=== PATIENT | female | born 1995 | race Caucasian/White ===

== ENCOUNTER 2021-03-11 23:15 | Emergency (ER) | payer MEDICAID, SELFPAY ==
[2021-03-11 23:16] VITALS: BP 141/113; PULSE 113; RESP 20; TEMP 37; O2SAT 99; BMI 26.9
--- NOTE | 2021-03-11 23:38 | EX.ED.VIS.PS ---
HPI HPI - Psych History of Present Illness Chief Complaint: Suicidal Informant: patient Onset/Context/Timing Onset: Today Context: Gradual Onset Timing: Continuous Worsened by: Situational factors Relieved by: Nothing Associated Symptoms Associated Symptoms - Psych: Positive for Depressed and Suicidal Thoughts; Negative for Visual Hallucinations and Auditory Hallucinations Specific plan (suicidal thought): Cutting self, burning self, hanging self Narrative Narrative: Patient presents with suicidal ideations that began today. Patient states that he has multiple stressors. Patient states that tonight he started burning himself on his left arm. Patient states he also had thoughts of cutting himself and hanging himself. Patient states he has tried to hang himself in the past. Patient denies any visual or auditory hallucinations. Prior similar symptoms: Yes PFSH PFSH Medical History (Updated 03/12/21 @ 02:[address] Bertin Rowe DO) Anxiety Depression Home Medications testosterone mg IM QWEEK 03/11/21 [History Last Taken Unknown] Allergy/AdvReac Type Severity Reaction Status Date / Time diphenhydramine AdvReac Itching Verified 03/11/21 23:20 [From Binta] Surgical History (Updated 03/11/21 @ 23:[address] Bertin Rowe DO) Status post tendon repair Social History Smoking Status: Current every day smoker tobacco type: cigarettes ROS ROS ED Constitutional Constitutional ED: Denies chills or fever(s) Eyes Eyes: Denies blurry vision or change in vision ENT ENT ED: Denies rhinorrhea or sore throat Cardiovascular Cardiovascular: Denies chest pain or palpitations Respiratory/Chest Respiratory/Chest: Denies cough or dyspnea Gastrointestinal Gastrointestinal: Denies nausea or vomiting Genitourinary Genitourinary ED: Denies dysuria or hematuria Musculoskeletal Musculoskeletal: Denies back pain or neck pain Integumentary Denies abscess or rash Neurologic Neurologic: Denies headache(s) or weakness Psychiatric Psychiatric: Reports depression and suicidal thoughts Allergic/Immunologic Allergic/Immunologic ED: Denies mouth swelling or urticaria EXAM Physical Exam Const Vital Signs: 03/11/21 23:16 03/12/21 01:03 03/12/21 02:02 Temperature 98.6 F Temperature Source Oral Pulse Rate 113 Respiratory Rate 20 16 16 Blood Pressure 141/113 Blood Pressure Mean 122 Pulse Ox 99 Oxygen Delivery Method Room Air 03/12/21 03:10 03/12/21 04:50 Temperature Temperature Source Pulse Rate 88 Respiratory Rate 16 14 Blood Pressure 138/85 H Blood Pressure Mean 102 Pulse Ox 99 Oxygen Delivery Method Positive well nourished and well developed General Appearance ED: well developed HEENT normocephalic and atraumatic Neck supple and no JVD Resp normal respiratory effort and clear to auscultation bilaterally Cardio no murmurs Rate: regular rate Rhythm: regular rhythm GI non-tender and non-distended Auscultation: normoactive bowel sounds Palpation: soft Extremity normal to inspection General Extremety ED: Negative for edema or tenderness General Extremity: Negative for edema Neuro oriented x3, CN's II-XII intact bilaterally and no sensory deficits noted Sensorium / Orientation: alert Motor Exam: strength 5/5 throughout Psych mental status grossly normal Activity / Motor Behavior: avoids eye contact Speech: minimal and soft Mood & Affect: depressed and flat affect Thought Content: suicidality Memory / Cognition: memory grossly intact Skin Rashes: no rashes MDM MDM MDM Narrative Medical decision making narrative: CBC shows a mild leukocytosis of 13.5. Basic metabolic profile was essentially within normal limits. Serum alcohol level was normal. Urine toxin was positive for cannabinoids. Urine hCG was negative. COVID-19 rapid antigen was obtained and was negative. Case was discussed with crisis. They recommended placing the patient in a psychiatric facility. They are attempting to do this at this time. Patient was accepted to [facility]. Patient will be transferred there. Patient understood and was agreeable with the plan. All questions were answered. Lab Data Attestation: I reviewed the patient's lab results. Labs: Laboratory Results - last 24 hr 03/11/21 03/11/21 03/11/21 23:55 23:55 23:55 WBC 13.5 H RBC 5.35 Hgb 16.3 H Hct 48.3 H MCV 90.3 MCH 30.5 MCHC 33.7 RDW Std Deviation 42.5 RDW Coeff of Juan 12.9 Plt Count 345 MPV 10.2 Immature Gran % (Auto) 0.400 Neut % (Auto) 80.9 H Lymph % (Auto) 12.3 L [place] % (Auto) 5.9 Eos % (Auto) 0.1 Baso % (Auto) 0.4 Absolute Neuts (auto) 10.9 H Absolute Lymphs (auto) 1.65 Nucleated RBC % 0 Sodium 139 Potassium 3.3 L Chloride 107 Carbon Dioxide 26.0 Anion Gap 6 BUN 9 Creatinine 0.94 Estim Creat Clear Calc 83.04 Est GFR (MDRD) Af Amer 94 Est GFR (MDRD) Non-Af 78 BUN/Creatinine Ratio 9.6 L Glucose 91 Calcium 9.4 Urine Test Urine Opiates Screen Urine Methadone Screen Ur Barbiturates Screen Ur Phencyclidine Scrn Ur Amphetamines Screen U Methamphetamin-MDMA U Benzodiazepines Scrn Urine Cocaine Screen U Cannabinoids Screen Ur Drug Screen Comment Ethyl Alcohol < 3.0 03/12/21 03/12/21 01:50 01:50 WBC RBC Hgb Hct MCV MCH MCHC RDW Std Deviation RDW Coeff of Juan Plt Count MPV Immature Gran % (Auto) Neut % (Auto) Lymph % (Auto) [place] % (Auto) Eos % (Auto) Baso % (Auto) Absolute Neuts (auto) Absolute Lymphs (auto) Nucleated RBC % Sodium Potassium Chloride Carbon Dioxide Anion Gap BUN Creatinine Estim Creat Clear Calc Est GFR (MDRD) Af Amer Est GFR (MDRD) Non-Af BUN/Creatinine Ratio Glucose Calcium Urine Test Negative Urine Opiates Screen NEGATIVE Urine Methadone Screen NEGATIVE Ur Barbiturates Screen NEGATIVE Ur Phencyclidine Scrn NEGATIVE Ur Amphetamines Screen NEGATIVE U Methamphetamin-MDMA NEGATIVE U Benzodiazepines Scrn NEGATIVE Urine Cocaine Screen NEGATIVE U Cannabinoids Screen POSITIVE H Ur Drug Screen Comment Ethyl Alcohol Treatment and Re-Evaluation Vital Sign Attestation:: Vital signs were reviewed prior to transfer. They are stable. Discharge Plan Triage Chief Complaint: Suicidal ED Provider: Bertin Rowe Dx/Rx/DC Orders Clinical Impression: Depression with suicidal ideation Prescriptions: No Action testosterone 50 mg/mL Solution IM QWEEK RF: 0 Primary Care Provider: Care Physician,No Primary Referrals: Care Physician,No Primary [Primary Care Provider] - Disposition Disposition: Psychiatric Hospital or Unit Discharge Location: [facility]
[2021-03-12] VITALS (7 sets, daily range): BP systolic 138; BP diastolic 85; PULSE 88; RESP 14–16; O2SAT 99
[2021-03-12 00:17] LABS: Absolute Lymphocyte Count 1.65 X10^3/uL (0.83-4.51); Absolute Neutrophil Count 10.9 X10^3/uL (2.0-7.7); Basophil# 0.05 X10^3/uL; Basophil% 0.4 % (0-1); Eosinophil# 0.02 X10^3/uL; Eosinophils% 0.1 % (0-5); Hematocrit 48.3 % (37-47); Hemoglobin 16.3 g/dL (12.0-15.0); Lymphocyte # 1.65 X10^3/ul (0.83-4.51); Lymphocyte % 12.3 % (19-41); Mean Corp Hgb Conc 33.7 g/dL (32-36); Mean Corpuscular Hgb 30.5 pg (27.0-32.0); Mean Corpuscular Volume 90.3 fL (81-99); Mean Platelet Vol. 10.2 fl (6.2-12.0); Monocyte% 5.9 % (0-10); NRBC Flagged by Analyzer 0 % (0-5); Neutrophil # 10.88 X10^3/uL (2.7-7.7); Neutrophil % 80.9 % (47-70); Platelet Count 345 K/mm3 (150-450); RBC Distribution Width CV 12.9 % (11.6-14.6); RBC Distribution Width SD 42.5 fl (35.1-43.9); Red Blood Count 5.35 M/mm3 (4.2-5.4); White Blood Count 13.5 K/mm3 (4.4-11.0)
[2021-03-12 00:39] LABS: Alcohol, Blood (Medical)-Serum < 3.0 mg/dL
[2021-03-12 00:40] LABS: Anion Gap 6 (5-15); BUN 9 mg/dL (7-18); BUN/Creat Ratio 9.6 RATIO (10-20); Calcium,Total 9.4 mg/dL (8.5-10.1); Chloride 107 mmol/L (98-107); Creatinine, Serum 0.94 mg/dL (0.55-1.02); EST Glomerular Filtration Rate 78 mL/min (>60); Est Glom Filt Rate - Afr Amer 94 mL/min (>60); Estimated Creatinine Clearance 83.04 ml/min; Glucose 91 mg/dL (74-106); Potassium 3.3 mmol/L (3.5-5.1); Sodium Level 139 mmol/L (136-145)
[2021-03-12 02:02] LABS: Internal QC Validated? YES +Cl - CLEAR BKGD; Pregnancy, Urine Negative Negative
[2021-03-12 02:14] LABS: Amphetamine Urine VISTA NEGATIVE (<1000 ng/mL); Barbiturate Urine VISTA NEGATIVE (< 200 ng/mL); Benzodiazepine Urine VISTA NEGATIVE (< 200 ng/mL); Cocaine Urine VISTA NEGATIVE (< 300 ng/mL); Ecstacy Urine VISTA NEGATIVE (< 500 ng/mL); Methadone Urine VISTA NEGATIVE (< 300 ng/mL); PCP Urine VISTA NEGATIVE (< 25 ng/mL); THC Urine VISTA POSITIVE (< 50 ng/mL); Vista UDS pH Range 7
--- NOTE | 2021-03-12 02:51 | ED.RN ---
Called lab to ask about COVID results. Tech thought they had already resulted, he would put them into computer.
[2021-03-12] MEDS: Potassium Chloride Oral Tablet 20 MEQ 40 MEQ PO (06:46)
== END 2021-03-12 07:25 ==
PROVIDERS: Emergency Provider Emergency Medicine
DX: F32.9 Major depressive disorder, single episode, unspecified (principal); F41.9 Anxiety disorder, unspecified; R45.851 Suicidal ideations; F17.210 Nicotine dependence, cigarettes, uncomplicated; Z91.5 Personal history of self-harm
CPT/HCPCS: 80048; 80307; 81025; 82077; 85025; 87426; 99285

== ENCOUNTER 2021-04-21 11:40 | Emergency (ER) | payer MEDICAID, SELFPAY ==
[2021-04-21 11:42] VITALS: BP 122/87; PULSE 96; RESP 16; TEMP 36.4; O2SAT 97; BMI 25.7
--- NOTE | 2021-04-21 12:37 | EDS_ITS ---
HPI History of Present Illness Chief Complaint: Cold Sx Informant: patient Narrative Narrative: Transgender female. Presents with Covid symptoms and concerns. 3- day history myalgias, mild productive cough, no vomiting or diarrhea. No fevers. Mild headache. Today for loss of taste and some loss of smell. States around people just recently diagnosed with Covid. No Covid vaccination. No infections in the past. Tolerating oral fluids. Prior similar symptoms: No PFSH PFSH Medical History Anxiety Depression Home Medications testosterone mg IM QWEEK 03/11/21 [History Last Taken Unknown] Allergy/AdvReac Type Severity Reaction Status Date / Time diphenhydramine AdvReac Itching Verified 04/21/21 11:41 [From Benadryl] Surgical History Status post tendon repair Social History Smoking Status: Current every day smoker tobacco type: cigarettes ROS ROS ED Constitutional Constitutional ED: Denies chills, fever(s) or sweats Eyes Eyes: Denies change in vision ENT ENT ED: Denies dysphagia or sore throat Cardiovascular Cardiovascular: Denies chest pain, leg edema, palpitations or racing heartbeat Respiratory/Chest Respiratory/Chest: Reports cough; Denies dyspnea or dyspnea on exertion Gastrointestinal Gastrointestinal: Denies abdominal pain, diarrhea, nausea or vomiting Genitourinary Genitourinary ED: Denies dysuria, hematuria or urinary frequency Musculoskeletal Musculoskeletal: Denies back pain, extremity pain or neck pain Integumentary Denies rash or wounds Neurologic Neurologic: Reports headache(s); Denies paresthesias or weakness EXAM Physical Exam Const Vital Signs: 04/21/21 11:42 Temperature 97.5 F L Temperature Source Temporal Pulse Rate 96 Respiratory Rate 16 Blood Pressure 122/87 H Blood Pressure Mean 98 Pulse Ox 97 Oxygen Delivery Method Room Air Positive well nourished and well developed General Appearance ED: well developed and NAD HEENT Reports moist mucous membranes normocephalic and atraumatic Eyes PERRL, EOMs intact bilaterally and conjunctivae normal General Eye ED: Yes normal appearance of both eyes Neck no lymphadenopathy and supple General: Negative for tenderness Chest Wall Chest: Negative for tenderness Resp normal respiratory effort and normal air movement Effort and Inspection: symmetric chest movement; Negative for respiratory distress Cardio regular rate, regular rhythm and no murmurs Peripheral Pulses: pulses 2+ throughout GI normal to inspection, nondistended, normoactive bowel sounds and non-tender Palpation: Negative for guarding or rebound tenderness present Back/Spine no CVA tenderness and no thoracic nor lumbar tenderness Extremity normal to inspection General Extremety ED: Negative for edema or tenderness General Extremity: Negative for edema Neuro oriented x3 and no sensory deficits noted Sensorium / Orientation: awake and alert Skin no rashes or lesions noted and no wounds MDM MDM MDM Narrative Medical decision making narrative: Patient vital signs stable pulse ox 97% no respiratory distress. Presentation history concerns for Covid infection. Test was ordered discussed with patient he will be texted his results. Isolation precautions. Tylenol Motrin as needed. Patient continue oral fluids. Return precautions. Discussed picking up a pulse oximeter to monitor oxygen levels. All questions answered. Discharge Plan Triage Chief Complaint: Cold Sx ED Provider: Armen Mabry Dx/Rx/DC Orders Clinical Impression: Suspected COVID-19 virus infection Instructions: Coronavirus Disease 2019 (COVID-19): Overview Prescriptions: No Action testosterone 50 mg/mL Solution IM QWEEK RF: 0 Primary Care Provider: Care Physician,No Primary Referrals: Maya Winters [NON-STAFF] - 1 Week Care Physician,No Primary [Primary Care Provider] - Disposition Disposition: Home, Self Care
== END 2021-04-21 13:02 | disposition home or self-care (01) ==
PROVIDERS: Emergency Provider Emergency Medicine
DX: U07.1 COVID-19 (principal); F17.210 Nicotine dependence, cigarettes, uncomplicated
CPT/HCPCS: 87426; 99282

== ENCOUNTER 2021-06-29 18:48 | Emergency (ER) | payer MEDICAID, SELFPAY ==
[2021-06-29 18:49] VITALS: BP 122/68; PULSE 69; RESP 15; TEMP 36.9; O2SAT 96; BMI 25.9
[2021-06-29 19:29] LABS: Absolute Lymphocyte Count 1.59 X10^3/uL (0.83-4.51); Absolute Neutrophil Count 16.4 X10^3/uL (2.0-7.7); Basophil# 0.06 X10^3/uL; Basophil% 0.3 % (0-1); Eosinophil# 0.14 X10^3/uL; Eosinophils% 0.7 % (0-5); Hematocrit 47.7 % (37-47); Hemoglobin 16.4 g/dL (12.0-15.0); Lymphocyte # 1.59 X10^3/ul (0.83-4.51); Lymphocyte % 8.4 % (19-41); Mean Corp Hgb Conc 34.4 g/dL (32-36); Mean Corpuscular Hgb 30.6 pg (27.0-32.0); Mean Platelet Vol. 9.4 fl (6.2-12.0); Monocyte# 0.59 X10^3/uL; Monocyte% 3.1 % (0-10); NRBC Flagged by Analyzer 0 % (0-5); Neutrophil # 16.42 X10^3/uL (2.7-7.7); Neutrophil % 87.1 % (47-70); Platelet Count 311 K/mm3 (150-450); RBC Distribution Width CV 12.3 % (11.6-14.6); RBC Distribution Width SD 40.1 fl (35.1-43.9); Red Blood Count 5.36 M/mm3 (4.2-5.4); White Blood Count 18.9 K/mm3 (4.4-11.0)
[2021-06-29 19:51] LABS: Anion Gap 5 (5-15); BUN 6 mg/dL (7-18); BUN/Creat Ratio 6.8 RATIO (10-20); Calcium,Total 9.4 mg/dL (8.5-10.1); Chloride 106 mmol/L (98-107); Creatinine, Serum 0.88 mg/dL (0.55-1.02); EST Glomerular Filtration Rate 84 mL/min (>60); Est Glom Filt Rate - Afr Amer 102 mL/min (>60); Glucose 93 mg/dL (74-106); Potassium 3.8 mmol/L (3.5-5.1); Sodium Level 137 mmol/L (136-145)
[2021-06-29 19:57] LABS: Internal QC Validated? YES +Cl - CLEAR BKGD; Pregnancy, Serum, hCG Quali. NEGATIVE Negative
[2021-06-29 19:59] LABS: Amphetamine Urine VISTA NEGATIVE (<1000 ng/mL); Barbiturate Urine VISTA NEGATIVE (< 200 ng/mL); Benzodiazepine Urine VISTA NEGATIVE (< 200 ng/mL); Cocaine Urine VISTA NEGATIVE (< 300 ng/mL); Ecstacy Urine VISTA NEGATIVE (< 500 ng/mL); Methadone Urine VISTA NEGATIVE (< 300 ng/mL); PCP Urine VISTA NEGATIVE (< 25 ng/mL); THC Urine VISTA POSITIVE (< 50 ng/mL); Vista UDS pH Range 7
--- NOTE | 2021-06-29 20:34 | CM.ED ---
SOCIAL WORK Crisis notified of assessment. Gina to be in to assess. Maegan Sanchez, ROOM COOLER INSTALLER, TRACK WATCHMAN
--- NOTE | 2021-06-29 20:35 | EDS_ITS ---
HPI History of Present Illness Chief Complaint: Suicidal Informant: patient and police/electrical cad designer Narrative Narrative: Transgender female brought in by for evaluation concerns for suicidal ideation with a plan. Initial discussion with the patient history of depression, was in [facility] a month ago started on Lexapro. States medication is not working. States has been trying to get in with counselor and psychiatry locally has been unsuccessful. States just needs medication no changes. Has been self cutting since 9 years old. Occasional marijuana use. Stop drinking alcohol. We discussed any specific plans, patient denies. However per pink slip from PD, patient texted roommate stating he was going to the [place] in the back and hang himself. This was reported to police and noted that he was about to go do this prior to police arriving. We discussed with patient, he states he was just in the moment. Prior similar symptoms: Yes PFSH PFSH Medical History Anxiety Depression Home Medications testosterone mg IM QWEEK 03/11/21 [History Last Taken Unknown] Allergy/AdvReac Type Severity Reaction Status Date / Time diphenhydramine AdvReac Itching Verified 04/21/21 11:41 [From Benadryl] Surgical History Status post tendon repair Social History Smoking Status: Current every day smoker tobacco type: cigarettes ROS ROS ED Constitutional Constitutional ED: Denies chills, fever(s) or sweats Eyes Eyes: Denies change in vision ENT ENT ED: Denies dysphagia or sore throat Cardiovascular Cardiovascular: Denies chest pain, leg edema, palpitations or racing heartbeat Respiratory/Chest Respiratory/Chest: Denies cough, dyspnea or dyspnea on exertion Gastrointestinal Gastrointestinal: Denies abdominal pain, diarrhea, nausea or vomiting Genitourinary Genitourinary ED: Denies dysuria, hematuria or urinary frequency Musculoskeletal Musculoskeletal: Denies back pain, extremity pain or neck pain Integumentary Denies rash or wounds Neurologic Neurologic: Denies headache(s), paresthesias or weakness Psychiatric Psychiatric: Reports depression and suicidal ideation EXAM Physical Exam Const Vital Signs: 06/29/21 18:49 06/29/21 21:03 06/29/21 22:00 Temperature 98.5 F Temperature Source Temporal Pulse Rate 69 Respiratory Rate 15 16 16 Blood Pressure 122/68 H Blood Pressure Mean 86 Pulse Ox 96 Oxygen Delivery Method Room Air Positive well nourished and well developed General Appearance ED: well developed and NAD HEENT Reports moist mucous membranes normocephalic and atraumatic Eyes PERRL, EOMs intact bilaterally and conjunctivae normal General Eye ED: Yes normal appearance of both eyes Neck no lymphadenopathy and supple General: Negative for tenderness Chest Wall Chest: Negative for tenderness Resp normal respiratory effort and normal air movement Effort and Inspection: symmetric chest movement; Negative for respiratory distress Cardio regular rate, regular rhythm and no murmurs Peripheral Pulses: pulses 2+ throughout GI normal to inspection, nondistended, normoactive bowel sounds and non-tender Palpation: Negative for guarding or rebound tenderness present Back/Spine no CVA tenderness and no thoracic nor lumbar tenderness Extremity normal to inspection General Extremety ED: Negative for edema or tenderness General Extremity: Negative for edema Neuro oriented x3 and no sensory deficits noted Sensorium / Orientation: awake and alert Psych Psych Narrative: Flat affect, denying any current suicidal or homicidal ideations. Skin Skin Narrative: Superficial skin lacerations left upper arm, no drainage or in duration. No active bleeding. Neurovascular intact distally. MDM MDM MDM Narrative Medical decision making narrative: Patient work-up initiated from triage. Suicide precautions. Labs white count 18.9. Denies cough. Tox screen positive for THC. hCG negative. Alcohol negative. We will add a UA for further evaluation. Patient medically cleared. Will have crisis evaluation of the patient due to pink slip noting suicidal plans prior to police arrival. UA noted 25 leukocytes. She is asymptomatic. She is evaluated mobile crisis, discussion had plan of care with safety contract. They discussed with her roommate. They will follow up with the patient daily multiple times a day for the next 2 days. They are on the same page for a plan of care. She will be seen by crisis closely as an outpatient medication adjustments as needed. Currently is not suicidal. Discharged with return precautions. Lab Data Attestation: I reviewed the patient's lab results. Labs: Laboratory Results - last 24 hr 06/29/21 06/29/21 06/29/21 19:15 19:15 19:15 WBC 18.9 H RBC 5.36 Hgb 16.4 H Hct 47.7 H MCV 89.0 MCH 30.6 MCHC 34.4 RDW Std Deviation 40.1 RDW Coeff of Juan 12.3 Plt Count 311 MPV 9.4 Immature Gran % (Auto) 0.400 Neut % (Auto) 87.1 H Lymph % (Auto) 8.4 L [place] % (Auto) 3.1 Eos % (Auto) 0.7 Baso % (Auto) 0.3 Absolute Neuts (auto) 16.4 H Absolute Lymphs (auto) 1.59 Nucleated RBC % 0 Sodium 137 Potassium 3.8 Chloride 106 Carbon Dioxide 26.0 Anion Gap 5 BUN 6 L Creatinine 0.88 Estim Creat Clear Calc 88.70 Est GFR (MDRD) Af Amer 102 Est GFR (MDRD) Non-Af 84 BUN/Creatinine Ratio 6.8 L Glucose 93 Calcium 9.4 Serum , Qual Urine Color Urine Clarity Urine pH Ur Specific [place] Urine Protein Urine Glucose (UA) Urine Ketones Urine Occult Blood Urine Nitrite Urine Bilirubin Urine Urobilinogen Ur Leukocyte Esterase Urine RBC Urine WBC Ur Squamous Epith Cells Urine Bacteria Urine Mucus Urine Opiates Screen Urine Methadone Screen Ur Barbiturates Screen Ur Phencyclidine Scrn Ur Amphetamines Screen U Methamphetamin-MDMA U Benzodiazepines Scrn Urine Cocaine Screen U Cannabinoids Screen Ur Drug Screen Comment Ethyl Alcohol 4.0 06/29/21 06/29/21 06/29/21 19:20 19:30 19:30 WBC RBC Hgb Hct MCV MCH MCHC RDW Std Deviation RDW Coeff of Juan Plt Count MPV Immature Gran % (Auto) Neut % (Auto) Lymph % (Auto) [place] % (Auto) Eos % (Auto) Baso % (Auto) Absolute Neuts (auto) Absolute Lymphs (auto) Nucleated RBC % Sodium Potassium Chloride Carbon Dioxide Anion Gap BUN Creatinine Estim Creat Clear Calc Est GFR (MDRD) Af Amer Est GFR (MDRD) Non-Af BUN/Creatinine Ratio Glucose Calcium Serum , Qual NEGATIVE Urine Color Yellow Urine Clarity Sl. Cloudy Urine pH 7.0 Ur Specific [place] 1.010 Urine Protein Negative Urine Glucose (UA) Normal Urine Ketones Negative Urine Occult Blood Negative Urine Nitrite Negative Urine Bilirubin Negative Urine Urobilinogen Normal Ur Leukocyte Esterase 25 H Urine RBC 0 SEEN Urine WBC 0 SEEN Ur Squamous Epith Cells 0-5 SEEN Urine Bacteria 0 SEEN Urine Mucus 0 SEEN Urine Opiates Screen NEGATIVE Urine Methadone Screen NEGATIVE Ur Barbiturates Screen NEGATIVE Ur Phencyclidine Scrn NEGATIVE Ur Amphetamines Screen NEGATIVE U Methamphetamin-MDMA NEGATIVE U Benzodiazepines Scrn NEGATIVE Urine Cocaine Screen NEGATIVE U Cannabinoids Screen POSITIVE H Ur Drug Screen Comment Ethyl Alcohol Discharge Plan Triage Chief Complaint: Suicidal ED Provider: Armen Mabry Dx/Rx/DC Orders Clinical Impression: Depression with suicidal ideation Instructions: CONTRACT, No Harm, ED Depression Prescriptions: No Action testosterone 50 mg/mL Solution IM QWEEK RF: 0 Primary Care Provider: Care Physician,No Primary Referrals: Care Physician,No Primary [Primary Care Provider] - Activity Restrictions/Additional Instructions: Follow-up with counseling center as discussed with them. Return if any worsening symptoms. Disposition Disposition: Home, Self Care
[2021-06-29 20:45] LABS: Bacteria 0 SEEN /hpf (None Seen); Mucous, Urine 0 SEEN /hpf (<or=2+); Red Blood Cells-Urine 0 SEEN /hpf (0-5); White Blood Cells 0 SEEN /hpf (0-5)
[2021-06-29 20:46] LABS: Color, Urine Yellow (Yellow); Glucose, Dipstick Normal (Normal); Ketone-Dipstick Negative (Negative); Leukocyte Esterase-Dipstick 25 /ul (Negative); Nitrite-Dipstick Negative (Negative); Occult Blood-Urine Negative /ul (Negative); Protein-Dipstick Negative (Negative); Urine Bilirubin Dipstick Negative (Negative); Urine Clarity Sl. Cloudy (Clear); Urine Urobilinogen Normal (Normal)
[2021-06-29 20:57] LABS: Squamous Epithelial Cells - UA 0-5 SEEN /hpf (5-10)
[2021-06-29 21:03] VITALS: RESP 16
[2021-06-29 22:00] VITALS: RESP 16
== END 2021-06-29 23:22 | disposition home or self-care (01) ==
PROVIDERS: Emergency Provider Emergency Medicine
DX: F32.A Depression, unspecified (principal); R45.851 Suicidal ideations; F17.210 Nicotine dependence, cigarettes, uncomplicated
CPT/HCPCS: 36415; 80048; 80307; 81001; 82077; 84703; 85025; 87426; 99285

== ENCOUNTER 2022-04-08 12:41 | Emergency (ER) | payer MEDICAID, SELFPAY ==
[2022-04-08 12:42] VITALS: BP 135/70; PULSE 78; RESP 15; TEMP 36.9; O2SAT 98; BMI 25.2
--- NOTE | 2022-04-08 12:58 | EDS_ITS ---
HPI History of Present Illness Chief Complaint: Upper Extremity Injury Narrative Narrative: 26-year-old transgender female presenting with right hand pain. She states that she punched a wall out of anger and she may have broke her hand again. She states it does hurt. She has no numbness or tingling. No bleeding or lacerations. [facility] Medical History Anxiety Depression Home Medications testosterone 50 mg/mL intramuscular solution mg IM QWEEK 03/11/21 [History Last Taken Unknown] naproxen 500 mg tablet (Naprosyn) 500 mg PO BID PRN pain #20 tabs 04/08/22 [Rx Last Taken Unknown] Allergy/AdvReac Type Severity Reaction Status Date / Time diphenhydramine AdvReac Itching Verified 04/21/21 11:41 [From Benadryl] Surgical History Status post tendon repair Social History Smoking Status: Current every day smoker tobacco type: cigarettes ROS ROS ED Constitutional Constitutional ED: Denies chills or fever(s) Eyes Eyes: Denies change in vision ENT ENT ED: Denies rhinorrhea or sore throat Cardiovascular Cardiovascular: Denies chest pain or palpitations Respiratory/Chest Respiratory/Chest: Denies cough or dyspnea Gastrointestinal Gastrointestinal: Denies abdominal pain or constipation Genitourinary Genitourinary ED: Denies dysuria or hematuria Musculoskeletal Musculoskeletal: Reports other Details: Right hand pain ; Denies back pain or myalgias Integumentary Denies abscess Neurologic Neurologic: Denies headache(s) or paresthesias Psychiatric Psychiatric: Denies anxiety or depression EXAM Physical Exam Const Vital Signs: 04/08/22 12:42 Temperature 98.4 F Temperature Source Temporal Pulse Rate 78 Respiratory Rate 15 Blood Pressure 135/70 H Blood Pressure Mean 91 Pulse Ox 98 Oxygen Delivery Method Room Air Positive well nourished and unkempt General Appearance ED: unkempt HEENT Reports moist mucous membranes normocephalic Eyes PERRL and EOMs intact bilaterally Resp normal respiratory effort Cardio regular rate and regular rhythm Extremity Extremity Narrative: Tenderness and swelling to the right hand over the third fourth and fifth MCPs. There is bruising overlying this. Right hand neurovascular intact brisk cap refill all 5 fingers. Right wrist nontender to palpate Neuro oriented x3 Sensorium / Orientation: alert Psych mental status grossly normal Appearance: unkempt MDM MDM MDM Narrative Medical decision making narrative: Patient presenting with right hand pain. Patient is concerned of a fracture in the right hand because its been broken before. There are some bruising and swelling noted over the third fourth and fifth MCPs. X-ray of the right hand on my interpretation does not show any acute fracture or subluxation. The radiologist does agree. It does appear to be evidence of old fractures. Patient placed in [place] wrap for comfort. Patient counseled to ice and elevate as frequently as possible. Patient given a prescription for Naprosyn. Impression: 1. right hand contusion 2. Right hand bruising 3. History of right hand fracture Lab Data Attestation: I reviewed the patient's lab results. Discharge Plan Triage Chief Complaint: Upper Extremity Injury ED Provider: Cedric Escobar Dx/Rx/DC Orders Instructions: ED Hand Contusion Prescriptions: New naproxen [Naprosyn] 500 mg tablet 500 mg PO BID PRN (Reason: pain) Qty: 20 0RF No Action testosterone 50 mg/mL Solution IM QWEEK Primary Care Provider: Pinky Noel Referrals: Care Physician,No Primary [Non-Staff] - Disposition Disposition: Home, Self Care
--- NOTE | 2022-04-08 12:58 | RAD_ITS ---
STUDY: X-RAY - RIGHT HAND REASON FOR EXAM: Female, 26 years old. Pain TECHNIQUE: 3 view(s) of the hand. COMPARISON: None. FINDINGS: Normal radiocarpal articulation. Normal distal radioulnar joint. Normal visualized carpal bones. Normal carpal articulations Normal carpometacarpal articulation of the thumb. Normal second through fifth carpometacarpal joints. There is a deformity of the fifth metacarpal. Normal metacarpophalangeal joint of the thumb. Normal interphalangeal joint of the thumb. Normal proximal and distal phalanges of the thumb. Normal metacarpophalangeal joints of the second through fifth fingers. Normal proximal and distal interphalangeal joints of the second through fifth fingers. Normal phalanges of the second through fifth fingers. The soft tissue structures are unremarkable. RAD/Hand Min 3 Views IMPRESSION: Fifth metacarpal deformity consistent with an old injury. Electronically Signed: María Elena Daugherty MD at 13:22 EDT ,
[2022-04-08] MEDS: Naproxen 500 MG Tablet PO (13:33)
[2022-04-08 13:37] VITALS: PULSE 76; RESP 17; O2SAT 97
== END 2022-04-08 13:39 | disposition home or self-care (01) ==
PROVIDERS: Emergency Provider Student in an Organized Health Care Education/Training Program; PCP Physician Assistant; Visit Provider Student in an Organized Health Care Education/Training Program
DX: S60.221A Contusion of right hand, initial encounter (principal); W22.09XA Striking against other stationary object, initial encounter; Y93.89 Activity, other specified; F17.210 Nicotine dependence, cigarettes, uncomplicated
CPT/HCPCS: 73130; 99283

== ENCOUNTER 2022-05-17 13:29 | Emergency (ER) | payer MEDICAID, SELFPAY ==
[2022-05-17 13:30] VITALS: BP 121/79; PULSE 84; RESP 15; TEMP 36.8; O2SAT 98; BMI 26.3
--- NOTE | 2022-05-17 14:00 | EX.ED.VIS.PS ---
HPI HPI - Psych History of Present Illness Chief Complaint: Suicidal Informant: patient Associated Symptoms Associated Symptoms - Psych: Positive for Depressed, Guilt and Suicidal Thoughts; Negative for Hopelessness, Visual Hallucinations or Auditory Hallucinations Specific plan (suicidal thought): none Narrative Narrative: 26-year-old transgender female, transitioning to male, presenting for depression and suicidal thoughts. He has had a long history of depression, attempted hanging years ago, and has cut in the past but no gestures or attempts or cutting recently, was on Lexapro for several months, however ran out about 1 month ago and stopped taking it due to lack of effort which he is apologetic for it because he feels guilty. Only feeling guilty about this with regards to himself, not toward anyone else. Does see a counselor and has appointment tomorrow. States he had a bad morning this morning and texted something to a friend about suicidal thoughts, so his sales representative supervisor brought him here for further evaluation. He is regretful, states that he would live to get back onto mental health medications and follow-up with his counselor. Uses marijuana on occasion no other drugs or alcohol. [facility] Medical History Anxiety Borderline personality disorder Depression PTSD (post-traumatic stress disorder) Home Medications testosterone 50 mg/mL intramuscular solution 100 mg IM QWEEK 03/11/21 [History Last Taken Unknown] escitalopram oxalate 20 mg tablet (Lexapro) 20 mg PO DAILY #30 tabs 05/17/22 [Rx Last Taken Unknown] Allergy/AdvReac Type Severity Reaction Status Date / Time diphenhydramine AdvReac Itching Verified 05/17/22 13:42 [From Richellel] Surgical History Status post tendon repair Social History Smoking Status: Current every day smoker tobacco type: cigarettes ROS ROS ED Constitutional Constitutional ED: Denies chills or fever(s) Eyes Eyes: Denies change in vision or diplopia ENT ENT ED: Denies rhinorrhea or sore throat Cardiovascular Cardiovascular: Denies chest pain or palpitations Respiratory/Chest Respiratory/Chest: Denies cough or dyspnea Gastrointestinal Gastrointestinal: Denies abdominal pain, diarrhea, nausea or vomiting Genitourinary Genitourinary ED: Denies dysuria or hematuria Musculoskeletal Musculoskeletal: Denies back pain or neck pain Integumentary Denies abscess or rash Neurologic Neurologic: Denies headache(s), paresthesias or weakness Psychiatric Psychiatric: Reports depression and suicidal thoughts; Denies homicidal ideation or suicidal ideation EXAM Physical Exam Const Vital Signs: 05/17/22 13:30 05/17/22 14:38 05/17/22 15:03 Temperature 98.2 F Temperature Source Temporal Pulse Rate 84 Respiratory Rate 15 16 18 Blood Pressure 121/79 H Blood Pressure Mean 93 Pulse Ox 98 Oxygen Delivery Method Room Air Room Air Room Air Positive well nourished and well developed General Appearance ED: well developed and NAD HEENT Reports moist mucous membranes normocephalic and atraumatic Eyes PERRL and EOMs intact bilaterally General Eye ED: Negative for scleral icterus Neck no lymphadenopathy and supple Resp normal respiratory effort GI non-distended Auscultation: normoactive bowel sounds Back/Spine no CVA tenderness and normal ROM Extremity normal to inspection General Extremety ED: Negative for edema General Extremity: Negative for edema Neuro oriented x3, CN's II-XII intact bilaterally, no sensory deficits noted and gait normal Sensorium / Orientation: alert Motor Exam: strength 5/5 throughout Psych mental status grossly normal, thought process normal, cooperative, activity/motor behavior normal and denies homicidal ideation Mood & Affect: depressed Thought Content: normal thought content and No suicidality Insight: insight good Judgement: judgement good Skin Lesions: no lesions Rashes: no rashes MDM MDM MDM Narrative Medical decision making narrative: I had social work evaluate the patient as well, she is in agreement and did a safety plan with the patient, that he can be discharged and I am happy to give him a refill on the Lexapro that he ran out of a month ago. When he was taking Lexapro, he developed no unexplained uncontrollable suicidal thoughts/ideation and tolerated it well. consult patient follow-up advised, discussed with egg caser as well. Discharge Plan Triage Chief Complaint: Suicidal ED Provider: Adrián Ibarra Dx/Rx/DC Orders Clinical Impression: Depression, Suicidal thoughts Instructions: Depression and the Brain's ... Prescriptions: New escitalopram oxalate [Lexapro] 20 mg tablet 20 mg PO DAILY Qty: 30 0RF No Action testosterone 50 mg/mL Solution 100 mg IM QWEEK Primary Care Provider: Care Physician,No Primary Referrals: Counselor, your [Other] - Keep Melina appointment Pinky Noel, PA [Physician Fire Chief] - Disposition Disposition: Home, Self Care
[2022-05-17 14:38] VITALS: RESP 16
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
[2022-05-17 15:03] VITALS: RESP 18
[2022-05-17 15:22] VITALS: RESP 18
== END 2022-05-17 15:24 | disposition home or self-care (01) ==
PROVIDERS: Emergency Provider Emergency Medicine; Visit Provider Emergency Medicine
DX: F32.A Depression, unspecified (principal); R45.851 Suicidal ideations; F64.0 Transsexualism; F17.210 Nicotine dependence, cigarettes, uncomplicated; Z79.899 Other long term (current) drug therapy; Z91.51 Personal history of suicidal behavior
CPT/HCPCS: 99284

== ENCOUNTER 2022-09-25 18:02 | Emergency (ER) | payer MEDICAID, SELFPAY ==
[2022-09-25 18:03] VITALS: BP 145/89; PULSE 139; RESP 18; TEMP 35.9; O2SAT 97; BMI 25.7
--- NOTE | 2022-09-25 18:30 | EX.ED.VIS.PS ---
HPI HPI - Psych History of Present Illness Chief Complaint: Suicidal Informant: patient Narrative Narrative: Patient states she has been having worsening depression and to the point where she is having thoughts of suicide without a plan, presents wanting help, saying that she had a counselor and antidepressant medications but has not taken them in at least months, and has not seen her counselor in similar period of time. States that she is here asking for help because if things get worse she will be to the point where she does not feel safe but right now she is not quite there, she is trying to prevent herself from getting worse. She states she has a history of suicide attempts in the form of attempted hanging's and thought about shooting herself. No attempts recently. No recent illness or injury. [facility] Medical History Anxiety Borderline personality disorder Depression PTSD (post-traumatic stress disorder) Home Medications escitalopram oxalate 20 mg tablet (Lexapro) 20 mg PO DAILY #30 tabs 05/17/22 [Rx Last Taken Unknown] hydroxyzine HCl 25 mg tablet 25 mg PO DAILY 09/25/22 [History Last Taken Unknown] mirtazapine 7.5 mg tablet 7.5 mg PO QHS 09/25/22 [History Last Taken Unknown] Allergy/AdvReac Type Severity Reaction Status Date / Time diphenhydramine AdvReac Itching Verified 09/25/22 18:05 [From Benadryl] Surgical History Status post tendon repair Social History Smoking Status: Current every day smoker tobacco type: cigarettes ROS ROS ED Constitutional Constitutional ED: Denies chills or fever(s) Eyes Eyes: Denies change in vision or diplopia ENT ENT ED: Denies rhinorrhea or sore throat Cardiovascular Cardiovascular: Denies chest pain or palpitations Respiratory/Chest Respiratory/Chest: Denies cough or dyspnea Gastrointestinal Gastrointestinal: Denies abdominal pain, diarrhea, nausea or vomiting Genitourinary Genitourinary ED: Denies dysuria or hematuria Musculoskeletal Musculoskeletal: Denies back pain or neck pain Integumentary Denies abscess or rash Neurologic Neurologic: Denies headache(s), paresthesias or weakness Psychiatric Psychiatric: Reports depression, suicidal ideation and suicidal thoughts; Denies homicidal ideation EXAM Physical Exam Const Vital Signs: 09/25/22 18:03 09/25/22 20:00 Temperature 96.7 F L Temperature Source Temporal Pulse Rate 139 H Respiratory Rate 18 18 Blood Pressure 145/89 H Blood Pressure Mean 107 Pulse Ox 97 Oxygen Delivery Method Room Air Positive well nourished and well developed General Appearance ED: well developed and NAD HEENT Reports moist mucous membranes normocephalic and atraumatic Eyes PERRL and EOMs intact bilaterally General Eye ED: Negative for scleral icterus Neck no lymphadenopathy and supple Resp normal respiratory effort and clear to auscultation bilaterally Cardio no murmurs Rate: regular rate Rhythm: regular rhythm GI non-tender and non-distended Auscultation: normoactive bowel sounds Palpation: soft Back/Spine no CVA tenderness and normal ROM Extremity normal to inspection General Extremety ED: Negative for edema General Extremity: Negative for edema Neuro oriented x3, CN's II-XII intact bilaterally, no sensory deficits noted and gait normal Sensorium / Orientation: alert Motor Exam: strength 5/5 throughout Psych mental status grossly normal, thought process normal, cooperative, activity/motor behavior normal and denies homicidal ideation Mood & Affect: depressed Thought Content: suicidality Skin Lesions: no lesions Rashes: no rashes MDM MDM MDM Narrative Medical decision making narrative: Other than the presence of THC in the patient's urine, her toxicology and medical testing is all negative and unremarkable. She is medically cleared. Will have crisis evaluate since she is having thoughts of suicide, depressed affect, and has risk factors for suicide including past attempts. Crisis evaluated, the patient really wants to go to an inpatient psychiatric facility voluntarily, saying that prior experience dictates to him that that is what he needs right now. I am okay with that, patient is medically cleared. Lab Data Attestation: I reviewed the patient's lab results. Labs: Laboratory Results - last 24 hr 09/25/22 09/25/22 09/25/22 18:30 18:30 18:30 WBC 7.3 RBC 5.07 Hgb 15.3 H Hct 45.5 MCV 89.7 MCH 30.2 MCHC 33.6 RDW Std Deviation 39.5 RDW Coeff of Juan 12.0 Plt Count 295 MPV 10.1 Immature Gran % (Auto) 0.300 Neut % (Auto) 68.5 Lymph % (Auto) 21.9 Archer % (Auto) 8.7 Eos % (Auto) 0.3 Baso % (Auto) 0.3 Absolute Neuts (auto) 5.0 Absolute Lymphs (auto) 1.61 Nucleated RBC % 0 Sodium 140 Potassium 3.6 Chloride 109 H Carbon Dioxide 22.0 Anion Gap 9 BUN 6 L Creatinine 0.74 Estim Creat Clear Calc 104.57 Est GFR (MDRD) Af Amer 122 Est GFR (MDRD) Non-Af 101 BUN/Creatinine Ratio 8.1 L Glucose 103 Calcium 9.1 Serum , Qual Urine Opiates Screen Urine Methadone Screen Ur Barbiturates Screen Ur Phencyclidine Scrn Ur Amphetamines Screen MDMA (Ecstasy) Screen U Benzodiazepines Scrn Urine Cocaine Screen U Cannabinoids Screen Ur Drug Screen Comment Ethyl Alcohol < 3.0 09/25/22 09/25/22 18:30 19:40 WBC RBC Hgb Hct MCV MCH MCHC RDW Std Deviation RDW Coeff of Juan Plt Count MPV Immature Gran % (Auto) Neut % (Auto) Lymph % (Auto) Archer % (Auto) Eos % (Auto) Baso % (Auto) Absolute Neuts (auto) Absolute Lymphs (auto) Nucleated RBC % Sodium Potassium Chloride Carbon Dioxide Anion Gap BUN Creatinine Estim Creat Clear Calc Est GFR (MDRD) Af Amer Est GFR (MDRD) Non-Af BUN/Creatinine Ratio Glucose Calcium Serum , Qual NEGATIVE Urine Opiates Screen NEGATIVE Urine Methadone Screen NEGATIVE Ur Barbiturates Screen NEGATIVE Ur Phencyclidine Scrn NEGATIVE Ur Amphetamines Screen NEGATIVE MDMA (Ecstasy) Screen NEGATIVE U Benzodiazepines Scrn NEGATIVE Urine Cocaine Screen NEGATIVE U Cannabinoids Screen POSITIVE H Ur Drug Screen Comment Ethyl Alcohol Discharge Plan Triage Chief Complaint: Suicidal ED Provider: Adrián Ibarra Dx/Rx/DC Orders Clinical Impression: Depression with suicidal ideation Prescriptions: No Action escitalopram oxalate [Lexapro] 20 mg tablet 20 mg PO DAILY Qty: 30 0RF hydroxyzine HCl 25 mg tablet 25 mg PO DAILY Label Comments: TAKE 1 TABLET BY MOUTH EVERY 6 HOURS NEEDED mirtazapine 7.5 mg tablet 7.5 mg PO QHS Label Comments: TAKE 1 TABLET BY MOUTH EVERY NIGHT AT BEDTIME Primary Care Provider: Care Physician,No Primary Referrals: Care Physician,No Primary [Primary Care Provider] - Disposition Disposition: Psychiatric Hospital or Unit
[2022-09-25 18:45] LABS: Absolute Lymphocyte Count 1.61 X10^3/uL (0.83-4.51); Basophil# 0.02 X10^3/uL; Basophil% 0.3 % (0-1); Eosinophil# 0.02 X10^3/uL; Eosinophils% 0.3 % (0-5); Hematocrit 45.5 % (37-47); Hemoglobin 15.3 g/dL (12.0-15.0); Lymphocyte # 1.61 X10^3/ul (0.83-4.51); Lymphocyte % 21.9 % (19-41); Mean Corp Hgb Conc 33.6 g/dL (32-36); Mean Corpuscular Hgb 30.2 pg (27.0-32.0); Mean Corpuscular Volume 89.7 fL (81-99); Mean Platelet Vol. 10.1 fl (6.2-12.0); Monocyte# 0.64 X10^3/uL; Monocyte% 8.7 % (0-10); NRBC Flagged by Analyzer 0 % (0-5); Neutrophil # 5.03 X10^3/uL (2.7-7.7); Neutrophil % 68.5 % (47-70); Platelet Count 295 K/mm3 (150-450); RBC Distribution Width SD 39.5 fl (35.1-43.9); Red Blood Count 5.07 M/mm3 (4.2-5.4); White Blood Count 7.3 K/mm3 (4.4-11.0)
[2022-09-25 19:01] LABS: Anion Gap 9 (5-15); BUN 6 mg/dL (7-18); BUN/Creat Ratio 8.1 RATIO (10-20); Calcium,Total 9.1 mg/dL (8.5-10.1); Chloride 109 mmol/L (98-107); Creatinine, Serum 0.74 mg/dL (0.55-1.02); EST Glomerular Filtration Rate 101 mL/min (>60); Est Glom Filt Rate - Afr Amer 122 mL/min (>60); Estimated Creatinine Clearance 104.57 ml/min; Glucose 103 mg/dL (74-106); Potassium 3.6 mmol/L (3.5-5.1); Sodium Level 140 mmol/L (136-145)
[2022-09-25 19:08] LABS: Internal QC Validated? YES +Cl - CLEAR BKGD; Pregnancy, Serum, hCG Quali. NEGATIVE Negative
[2022-09-25 19:12] LABS: Alcohol, Blood (Medical)-Serum < 3.0 mg/dL
[2022-09-25 20:00] VITALS: RESP 18
[2022-09-25 20:18] LABS: Amphetamine Urine VISTA NEGATIVE (<1000 ng/mL); Barbiturate Urine VISTA NEGATIVE (< 200 ng/mL); Benzodiazepine Urine VISTA NEGATIVE (< 200 ng/mL); Cocaine Urine VISTA NEGATIVE (< 300 ng/mL); Ecstacy Urine VISTA NEGATIVE (< 500 ng/mL); Methadone Urine VISTA NEGATIVE (< 300 ng/mL); PCP Urine VISTA NEGATIVE (< 25 ng/mL); THC Urine VISTA POSITIVE (< 50 ng/mL); Vista UDS pH Range 5
[2022-09-25 22:39] VITALS: RESP 16
[2022-09-25 23:57] VITALS: BP 114/72; PULSE 72; RESP 16; O2SAT 98
--- NOTE | 2022-09-26 02:11 | NURSING ---
KLAUDIA BORREGO CALLED WITH ACCEPTANCE- [facility]- ACCEPTING DR IS DR LEUNG-
[2022-09-26 03:00] VITALS: RESP 14
[2022-09-26 04:00] VITALS: RESP 14
--- NOTE | 2022-09-26 05:12 | NURSING ---
[facility] ETA [id number]
[2022-09-26 05:23] VITALS: RESP 14
[2022-09-26 06:56] VITALS: BP 120/74; PULSE 85; RESP 18; O2SAT 98
== END 2022-09-26 07:00 ==
PROVIDERS: Emergency Provider Emergency Medicine; Visit Provider Emergency Medicine
DX: R45.851 Suicidal ideations (principal); F32.A Depression, unspecified; F17.210 Nicotine dependence, cigarettes, uncomplicated; Z91.51 Personal history of suicidal behavior
CPT/HCPCS: 80048; 80307; 82077; 84703; 85025; 87811; 99283